=== PATIENT | female | born 1955 | race Caucasian/White ===

== ENCOUNTER 2016-07-22 18:42 | Emergency (ER) | payer BC ==
[~2016-07-22] VITALS: Ht 167.6 cm; Wt 69.3 kg
[~2016-07-22 18:42] MED LIST: LEVO-217 PO; SERT50TA PO
[2016-07-22 18:46] VITALS: TEMP 36.9; Ht 167.6 cm; Wt 69.3 kg
[2016-07-22 19:13] LABS: BASO % 0.1 %; BASO ABS # 0.01 K/uL (0-0.2); COMPLETE YES; EOS % 0.1 %; HEMATOCRIT 44.9 % (37-47); IG% 0.1 %; LYMPH % 7.8 %; LYMPH ABS # 0.57 K/uL (1.2-3.4); MEAN CORPUSCULAR HEMOGLOBIN 29.7 pg (25-34); MONO % 1.6 %; NEUT % 90.3 %; PLATELET COUNT 253 K/uL (130-400); RED BLOOD COUNT 5.28 M/uL (4.2-5.4)
[2016-07-22] MEDS ORDERED: FEXO1TAB58 PO (19:17)
[2016-07-22] MEDS ORDERED: PHNS125 RE (19:17)
[2016-07-22] MEDS ORDERED: ONDANSETRON 8 MG/54 ML D5W IV STA (19:21)
[2016-07-22] MEDS ORDERED: SODIUM CHLORIDE 0.9% 1000ML 2,000 ML IV STA (19:21)
[2016-07-22 19:33] LABS: BUN/CREATININE RATIO 17.8 (10-20); CALCIUM 9.3 mg/dl (8.5-10.1); CREATININE 0.9 mg/dl (0.60-1.20)
[2016-07-22] MEDS ORDERED: KETOROLAC TROMETHAMINE 30 MG/ML VIAL IV STA (19:34)
[2016-07-22 20:06] LABS: LYME DISEASE AB IGG NEG (NEG)
[2016-07-22 20:09] LABS: LYME DISEASE AB IGM EQUIVOCAL (NEG)
--- NOTE | 2016-07-22 20:24 | DIAGNOSTIC IMAGING REPORT ---
CT ANGIOGRAPHY HEAD COMBO CT DOSE: 727.46 mGy.cm CLINICAL HISTORY: Severe headache. TECHNIQUE: Unenhanced images of the brain were obtained. Subsequent to this, CT angiography of the brain was performed in a dynamic helical fashion during intravenous administration 116 cc of Optiray 320. MIP imaging was performed. COMPARISON STUDY: Noncontrast head CT dated 04/21/2011, MR angiography of the brain dated 05/09/2011 FINDINGS: Noncontrast images reveal no intra or extra-axial mass lesions. There is no CT evidence of acute cortical infarction. There is no midline shift. There is no acute hemorrhage. There is no hydrocephalus. There is moderate mucosal thickening within the maxillary ethmoid and sphenoid sinuses. CT angiographic images reveal no major intracranial branch occlusions. There are no lesion suspicious for aneurysm. The dural venous sinuses appear patent. There are no pathologically enhancing masses. IMPRESSION: 1. Paranasal sinus disease 2. No evidence of aneurysm. No evidence of intracranial branch occlusion, or significant intracranial stenosis. Electronically signed by: Ronan Carroll M.D. 07/22/2016 8:23 PM Dictated Date/Time: 07/22/2016 8:19 PM
[2016-07-22] MEDS ORDERED: OPTIRAY 320 IV PRN (20:30)
[2016-07-22] MEDS ORDERED: DOXY100C76 PO (21:09)
[2016-07-22] MEDS ORDERED: DOXYCYCLINE HYCLATE 100 MG CAP PO ONE ×2 (21:45→23:00)
[2016-07-22] MEDS ORDERED: TRAMADOL HCL 50 MG HOME PACK PO ONE (21:45)
[2016-07-22 22:47] VITALS: BP 130/76; PULSE 80; O2SAT 98
--- NOTE | 2016-07-23 01:18 | EMERGENCY ROOM VISIT NOTE ---
History Report prepared by Angelica: Alejandro Brush Under the Supervision of: Dr. Charles Milian M.D. First contact with patient: 19:06 Chief Complaint: VOMITING Stated Complaint: VOMITING FOR 12 HOURS,SINUS HEADACHE Nursing Triage Summary: patient c/o sinus headache and congestion along with vomiting since this am at 0700 with no improvement. History of Present Illness The patient is a 61 year old female who presents to the Emergency Room with complaints of persistent headache that worsened this morning. The patient notes that she woke up multiple times throughout the night with a bad headache. This morning when she woke up, she started having episodes of vomiting. The patient notes that she took Phenergan to help relieve her vomiting; however, it only helped her sleep and she was still waking up to vomit almost every hour. The patient notes that she can't keep any foods or liquids down today and is worried about dehydration. She notes that a few weeks ago during a snowstorm, she started having sinus issues and had episodes of vomiting throughout the day. Her symptoms had resolved until last week when she had a similar episode where her sinuses were bothering her and she had cold-like symptoms, a headache , and multiple episodes of vomiting throughout the day. The headache has been persistently bothering her since last week and worsened this morning. She rates her discomfort as a 5 out of 10 in severity. She describes the headache as being in her sinuses, the front of her head, and the base of the back of her head which is similar to her usual migraine symptoms. She also complains of neck stiffness on the side but no difficulty with flexion or extension. The patient also notes having a tick bite several weeks ago. Pt denies LOC,fevers, chills, diaphoresis, visual changes, chest pain, breathing difficulties, back pain, melena, hematochezia, urinary symptoms, numbness, weakness, lymphadenopathy, rash, or other complaints. Source of History: patient Onset: this morning Position: head Symptom Intensity: 5/10 in severity Timing: worsening Associated Symptoms: + neck pain (stiffness), + vomiting Note: Other associated symptoms: sinus issues, cold-like symptoms Review of Systems See HPI for pertinent positives and negatives. A total of ten systems were reviewed and were otherwise negative. Past Medical & Surgical Medical Problems: (1) food bolus (2) Hypothyroidism (3) Migraine (4) Osteoporosis (5) Ovarian cyst (6) URI (upper respiratory infection) (7) Vasovagal syncope Family History Cancer Lung disease Social History Smoking Status: Former Smoker Marital Status: Housing Status: lives with family Occupation Status: employed Current/Historical Medications Scheduled Doxycycline Monohydrate (Monodox), 100 MG PO BID Fexofenadine-Pseudoephedrine (Jaye-D 24 Hour Allergy), 1 TAB PO DAILY Promethazine HCl (Phenadoz), 1 SUPP RE PRN UD Allergies Coded Allergies: BEE STING (Verified Allergy, Severe, SWELLING, 10/07/14) Codeine (Verified Adverse Reaction, Mild, VOMITS, 10/07/14) Physical Exam Vital Signs Date Time Temp Pulse Resp B/P Pulse Ox O2 Delivery O2 Flow Rate FiO2 07/22/16 22:47 80 20 130/76 98 07/22/16 21:17 93 20 130/77 98 Room Air 07/22/16 19:39 93 20 137/83 98 Room Air 07/22/16 19:23 99 07/22/16 18:46 36.9 104 20 123/76 98 Room Air Physical Exam GENERAL: Awake, alert, uncomfortable appearing, no distress HENT: Normocephalic, atraumatic. TM's normal. Oropharynx unremarkable. EYES: PERRL. EOMI. Normal conjunctiva. Sclera non-icteric. NECK: Supple. No nuchal rigidity. FROM. No JVD or bruit. RESPIRATORY: CTA CARDIAC: RRR. No murmur. ABDOMEN: Soft, non distended. No tenderness to palpation. No rebound or guarding. No masses. RECTAL: Deferred. MUSCULOSKELETAL: Unremarkable. No edema. No discoloration. Gross motor strength symmetric. NEURO: Cranial nerves 2-12 grossly intact. Normal sensorium. No sensory or motor deficits noted. Speech normal. No pronator drift. SKIN: No rash or jaundice noted. LYMPH: No adenopathy. Medical Decision & Procedures ER Provider Diagnostic Interpretation: X ray results as stated below per my interpretation and radiologist interpretation. Other radiology results as stated below per my review and radiologist interpretation CT ANGIOGRAPHY HEAD COMBO CT DOSE: 727.46 mGy.cm CLINICAL HISTORY: Severe headache. TECHNIQUE: Unenhanced images of the brain were obtained. Subsequent to this, CT angiography of the brain was performed in a dynamic helical fashion during intravenous administration 116 cc of Optiray 320. MIP imaging was performed. COMPARISON STUDY: Noncontrast head CT dated 04/21/2011, MR angiography of the brain dated 05/09/2011 FINDINGS: Noncontrast images reveal no intra or extra-axial mass lesions. There is no CT evidence of acute cortical infarction. There is no midline shift. There is no acute hemorrhage. There is no hydrocephalus. There is moderate mucosal thickening within the maxillary ethmoid and sphenoid sinuses. CT angiographic images reveal no major intracranial branch occlusions. There are no lesion suspicious for aneurysm. The dural venous sinuses appear patent. There are no pathologically enhancing masses. IMPRESSION: 1. Paranasal sinus disease 2. No evidence of aneurysm. No evidence of intracranial branch occlusion, or significant intracranial stenosis. Electronically signed by: Ronan Carroll M.D. 07/22/2016 8:23 PM Dictated Date/Time: 07/22/2016 8:19 PM Laboratory Results 07/22/16 19:00 Red Blood Count 5.28, Mean Corpuscular Volume 85.0, Mean Corpuscular Hemoglobin 29.7, Mean Corpuscular Hemoglobin Concent 35.0, Mean Platelet Volume 10.0, Neutrophils (%) (Auto) 90.3, Lymphocytes (%) (Auto) 7.8, Monocytes (%) (Auto) 1.6, Eosinophils (%) (Auto) 0.1, Basophils (%) (Auto) 0.1, Neutrophils # (Auto) 6.58, Lymphocytes # (Auto) 0.57, Monocytes # (Auto) 0.12, Eosinophils # (Auto) 0.01, Basophils # (Auto) 0.01 07/22/16 19:00 Test 07/22/16 19:00 White Blood Count 7.30 K/uL (4.8-10.8) Red Blood Count 5.28 M/uL (4.2-5.4) Hemoglobin 15.7 g/dL (12.0-16.0) Hematocrit 44.9 % (37-47) Mean Corpuscular Volume 85.0 fL (80-100) Mean Corpuscular Hemoglobin 29.7 pg (25-34) Mean Corpuscular Hemoglobin Concent 35.0 g/dl (32-36) Platelet Count 253 K/uL (130-400) Mean Platelet Volume 10.0 fL (7.4-10.4) Neutrophils (%) (Auto) 90.3 % Lymphocytes (%) (Auto) 7.8 % Monocytes (%) (Auto) 1.6 % Eosinophils (%) (Auto) 0.1 % Basophils (%) (Auto) 0.1 % Neutrophils # (Auto) 6.58 K/uL (1.4-6.5) Lymphocytes # (Auto) 0.57 K/uL (1.2-3.4) Monocytes # (Auto) 0.12 K/uL (0.11-0.59) Eosinophils # (Auto) 0.01 K/uL (0-0.5) Basophils # (Auto) 0.01 K/uL (0-0.2) RDW Standard Deviation 39.6 fL (36.4-46.3) RDW Coefficient of Variation 12.6 % (11.5-14.5) Immature Granulocyte % (Auto) 0.1 % Immature Granulocyte # (Auto) 0.01 K/uL (0.00-0.02) Anion Gap 12.0 mmol/L (3-11) Est Creatinine Clear Calc Drug Dose 61.4 ml/min Estimated GFR () 80.0 Estimated GFR (Non- 69.0 BUN/Creatinine Ratio 17.8 (10-20) Calcium Level 9.3 mg/dl (8.5-10.1) Total Bilirubin 1.6 mg/dl (0.2-1) Direct Bilirubin 0.3 mg/dl (0-0.2) Aspartate Amino Transf (AST/SGOT) 16 U/L (15-37) Alanine Aminotransferase (ALT/SGPT) 21 U/L (12-78) Alkaline Phosphatase 72 U/L (45-117) Total Protein 8.0 gm/dl (6.4-8.2) Albumin 4.2 gm/dl (3.4-5.0) Lipase 190 U/L (73-393) Lyme Disease IgG Antibody NEG (NEG) Laboratory results reviewed by me Medications Administered Medications (Trade) Dose Ordered Sig/Mary Route Start Time Stop Time Status Last Admin Dose Admin Sodium Chloride (Nss 1000ml) 2,000 ml @ 999 mls/hr Q2H1M STAT IV 07/22/16 19:21 07/22/16 21:21 DC 07/22/16 19:38 999 MLS/HR Ondansetron HCl (Zofran 8mg Iv) 8 mg NOW STAT IV 07/22/16 19:21 07/22/16 19:24 DC 07/22/16 19:39 8 MG Ketorolac Tromethamine (Toradol Inj) 10 mg NOW STAT IV 07/22/16 19:34 07/22/16 19:35 DC 07/22/16 19:38 10 MG Doxycycline Hyclate (Vibramycin Cap) 100 mg ONE ONCE PO 07/22/16 21:45 07/22/16 21:46 DC 07/22/16 21:45 100 MG Tramadol HCl (Ultram Home Pack) 1 homepack UD ONCE PO 07/22/16 21:45 07/22/16 21:46 DC 07/22/16 21:45 1 HOMEPACK ED Course 1916: The patient was evaluated in room A2. A complete history and physical exam was performed. 1920: Ordered Ondansetron HCl 8 mg IV, NSS 2000 ml @ 999 mls/hr IV. 1933: Ordered Toradol Inj 10 mg IV. 2132: At this time, I reevaluated the patient. She was still in some pain and some pain medications were ordered. She did not want any more pain medications after this dose. 2144: Ordered Tramadol HCl 1 homepack PO, Vibramycin Cap 100 mg PO. 2299: Ordered Vibramycin Cap 100 mg PO. 2: I reevaluated the patient and she was feeling better. Discussed results and discharge instructions: She verbalized understanding and agreement. The patient is ready for discharge. Medical Decision Triage Nursing notes reviewed. The patient's presentation and history were concerning for headache, vomiting and sinus issues. Etiologies such as migraine, tumor, headache, sinus thrombosis, temporal arteritis, sinusitis, CVA, ICH, SAH, infection, Lyme disease, as well as others were entertained. The patient was evaluated. She had no nuchal rigidity on examination. She has had this headache wax and wane for over a week. She notes sinus pressure. She has a history sinus infection as well as history of migraines. She hasn't had any significant fever. The patient did not want any significant medicine for the pain as she notes being very sensitive to medication. She was hydrated, given Zofran, and then received Toradol. Blood work revealed no leukocytosis. Her chemistry panel was unremarkable. LFTs showed a slight elevation of bili function but nothing significant. Her Lyme screen was abnormal with regards to the IgM. IgG was negative. Western blot is pending. CT imaging did not reveal any evidence of aneurysm, stroke, bleed, or fracture. The patient did have some paranasal sinus disease present. Because of the findings the patient will be treated with doxycycline. First dose was given in the Emergency Room. The patient also was given a dose of tramadol and home pack. She did not want a prescription of strong medication. She will need close outpatient follow-up. If she worsens in any way she will come back to the emergency department for reevaluation. I did discuss further testing including lumbar puncture and the patient was not interested in pursuing. She does not have any meningeal findings and I think that is reasonable to be conservative and treat her based upon her history and findings. By the evaluation outlined above other emergent etiologies such as those listed in the differential, as well as others, were deemed relatively unlikely. The patient and were informed about the findings as listed above. All questions were answered and they were pleased with the treatment. Return instructions were outlined and the patient was discharged in stable condition. The patient was referred to her PCP for follow-up first thing this week for a recheck of the current condition. The chart was completed utilizing AVIS Speech voice recognition software. Grammatical errors, random word insertions, pronoun errors, and incomplete sentences are an occasional consequence of this system due to software limitations, ambient noise, and hardware issues. Any formal questions or concerns about the content, text, or information contained within the body of this dictation should be directly addressed to the physician for clarification. Impression Primary Impression: Vomiting Additional Impressions: Headache Sinusitis Lyme disease Scribe Attestation The scribe's documentation has been prepared under my direction and personally reviewed by me in its entirety. I confirm that the note above accurately reflects all work, treatment, procedures, and medical decision making performed by me. Departure Information Dispostion Home / Self-Care Prescriptions Doxycycline Monohydrate (Monodox) 100 Mg Cap 100 MG PO BID, #41 CAP Prov: Charles Milian MD 07/22/16 Referrals Cornel Blackwell M.D. (PCP) Forms HOME CARE DOCUMENTATION FORM, IMPORTANT VISIT INFORMATION Patient Instructions My [facility] Additional Instructions HEADACHE INSTRUCTIONS: Doxycycline 100mg: Take one pill twice daily for 21 Days for your infection. Take with food, but avoid dairy. Avoid prolonged sun exposure since this medication makes you temporarily more susceptible to sunburns. All antibiotics can cause diarrhea. If this occurs and you feel worse or it does not resolve in 1-2 days follow up with your doctor or return to the Emergency Department as this could be signs of serious underlying problems. Any medication can cause an allergic reaction, stop the pills immediately and return to the ER for rash, hives, breathing difficulties, or swelling. Tramadol 50 mg: Take 1 pill every four hours as needed for breakthrough pain. Avoid alcohol, operating machinery or dangerous equipment, working on ladders or roofs, DRIVING, or situations where being under the influence may be dangerous. Confirmation of your Lyme test is pending and will be back by the end of the week. Call back to the Emergency Room, [phone]. Rest today in a quiet, peaceful, dark environment and get a full 8-10 hrs of sleep tonight. Avoid loud noises, smoke/smoking, alcohol, bright lights, stress, or physical exertion today to minimize the chance the headache may return. Continue current medications. Ibuprofen(Motrin, Advil) may be used for fever or pain. Use 600mg every six hours as needed. Take with food. Avoid using more than 2400mg in a 24 hour period. Do not use 2400mg per day for more than three consecutive days without physician direction. Prolonged inappropriate use can lead to stomach upset or ulcers. (AND/OR) Acetaminophen(Tylenol) may be used for fever or pain. Use 1000mg every six hours as needed. Avoid using more than 4000mg in a 24 hour period. Return to the ER for passing out, worsening headache, vision problems, neck stiffness/pain, fevers, vomiting, worsening of your condition, or as needed. Follow up with your primary physician in 2-3 days for a recheck of your current condition. Problem Qualifiers Primary Impression: Vomiting Vomiting type: unspecified Vomiting Intractability: unspecified Nausea presence: with nausea Qualified Codes: R11.2 - Nausea with vomiting, unspecified Additional Impressions: Headache Headache type: unspecified Headache chronicity pattern: acute headache Intractability: not intractable Qualified Codes: R51 - Headache Sinusitis Sinusitis location: maxillary Chronicity: acute Recurrence: recurrent Qualified Codes: J01.01 - Acute recurrent maxillary sinusitis
[2016-07-26 11:50] LABS: 18KDIGG BAND NONREACTIVE (NONREACTIVE); 23KDIGG BAND NONREACTIVE (NONREACTIVE); 23KDIGM BAND REACTIVE (NONREACTIVE); 28KDIGG BAND NONREACTIVE (NONREACTIVE); 30KDIGG BAND NONREACTIVE (NONREACTIVE); 39KDIGG BAND NONREACTIVE (NONREACTIVE); 39KDIGM BAND NONREACTIVE (NONREACTIVE); 41KDIGG BAND REACTIVE (NONREACTIVE); 41KDIGM BAND REACTIVE (NONREACTIVE); 45KDIGG BAND NONREACTIVE (NONREACTIVE); 58KDIGG BAND NONREACTIVE (NONREACTIVE); 66KDIGG BAND NONREACTIVE (NONREACTIVE); 93KDIGG BAND NONREACTIVE (NONREACTIVE)
== END 2016-07-22 22:48 | disposition home or self-care (01) ==
LOC: C.EDB 18:43 → C.EDA 22:48
DX: R11.10 Vomiting, unspecified (principal); J32.9 Chronic sinusitis, unspecified; R51 Headache; A69.20 Lyme disease, unspecified; Z87.891 Personal history of nicotine dependence; E03.9 Hypothyroidism, unspecified; M81.0 Age-related osteoporosis without current pathological fracture; M54.2 Cervicalgia

== ENCOUNTER → 2017-01-11 | Outpatient (CLI) | payer BC ==
[~2017-01-11] MED LIST changes: +DOXY100C76 PO; +FEXO1TAB58 PO; -LEVO-217 PO; +PHNS125 RE; -SERT50TA PO
--- NOTE | 2017-01-14 13:33 | MAMMOGRAPHY REPORT ---
BILATERAL DIGITAL SCREENING MAMMOGRAM TOMOSYNTHESIS WITH CAD: 01/11/2017 CLINICAL HISTORY: Routine screening. Patient has no complaints. TECHNIQUE: Breast tomosynthesis in addition to standard 2D mammography was performed. Current study was also evaluated with a Computer Aided Detection (CAD) system. COMPARISON: Comparison is made to exams dated: 01/11/2016 mammogram, 12/13/2014 mammogram, 04/23/2012 ma mmogram, 05/16/2010 mammogram, 05/13/2009 mammogram - [facility], and 04/16/2008. BREAST COMPOSITION: There are scattered areas of fibroglandular density in both breasts. FINDINGS: No suspicious masses, calcifications, or areas of architectural distortion are noted in ei ther breast. There has been no significant interval change compared to prior exams. IMPRESSION: ACR BI-RADS CATEGORY 1: NEGATIVE There is no mammographic evidence of malignancy. A 1 year screening mammogram is recommended. The pa tient will receive written notification of the results. Approximately 10% of breast cancers are not detected with mammography. A negative mammographic report should not delay biopsy if a clinically suggestive mass is present. Ananya Schmitt M.D. /:01/11/2017 16:23:40 Awning Finisher: Racheal BORREGO(Melanie)(M), [facility] letter sent: Normal 1/2 BI-RADS Code: ACR BI-RADS Category 1: Negative
== END | disposition home or self-care (01) ==
LOC: C.MAMM 15:47
PROVIDERS: ATTEND Family Medicine
DX: Z12.31 Encounter for screening mammogram for malignant neoplasm of breast (principal)

== ENCOUNTER → 2017-05-31 | Outpatient (CLI) | payer BC ==
[~2017-05-31] MED LIST changes: -DOXY100C76 PO
--- NOTE | 2017-05-31 16:28 | DIAGNOSTIC IMAGING REPORT ---
L KNEE 4 OR MORE CLINICAL HISTORY: LEFT KNEE PAIN pain COMPARISON: None. DISCUSSION: The bones and joint spaces appear intact. There is no evidence of fracture, dislocation or bony disease. There is no evidence for soft tissue swelling. IMPRESSION: Negative study. The above report was generated using voice recognition software. It may contain grammatical, syntax or spelling errors. Electronically signed by: Kun Morales M.D. 05/31/2017 4:27 PM Dictated Date/Time: 05/31/2017 4:27 PM
== END | disposition home or self-care (01) ==
LOC: C.RDSM 19:55
PROVIDERS: ATTEND Family Medicine
DX: M25.569 Pain in unspecified knee (principal)

== ENCOUNTER → 2017-06-28 | Outpatient (CLI) | payer BC ==
--- NOTE | 2017-06-28 09:19 | DIAGNOSTIC IMAGING REPORT ---
LEFT KNEE MRI HISTORY: Left knee pain. COMPARISON STUDY: Left knee 05/31/2017. TECHNIQUE: Multiplanar multisequence MRI of the left knee was performed according to standard department protocol without the use of contrast. FINDINGS: Menisci: Small oblique tear extending to the undersurface of the body and posterior horn of the medial meniscus. The lateral meniscus appears intact. Ligaments: The anterior and posterior cruciate ligaments are intact. The medial and lateral collateral ligaments are normal in appearance. Extensor mechanism: The quadriceps tendon and patellar ligament are intact. Articular cartilage and bone: No fracture dislocation. Normal marrow signal intensity seen throughout the visualized osseous structures. Moderate patellar chondromalacia. Remaining cartilage spaces are maintained for age. Joint effusion: Small. Soft tissues: Intact. IMPRESSION: 1. Oblique tear extending to the undersurface of the body and posterior horn of the medial meniscus. 2. Small joint effusion. 3. Moderate patellar chondromalacia. Electronically signed by: Sarbjit Farmer M.D. 06/28/2017 9:17 AM Dictated Date/Time: 06/28/2017 9:05 AM
== END | disposition home or self-care (01) ==
LOC: C.MRIBC 08:13
PROVIDERS: ATTEND Family Medicine
DX: M25.562 Pain in left knee (principal); M25.462 Effusion, left knee